=== PATIENT | female | born 1990 | race Caucasian/White ===

== ENCOUNTER 2017-03-16 16:35 | Emergency (ER) | payer OTHER ==
[~2017-03-16] VITALS: Ht 165.1 cm; Wt 63.5 kg
[2017-03-16 17:06] VITALS: BP 113/66
--- NOTE | 2017-03-16 18:49 | NUR ---
26/F BIB FAMILY C/O "DARK GREYISH" VAGINAL DISCHARGE WITH ODOR X 2-3MONTH, PROGRESSIVELY GETTING WORSE; SEEN BY URGENT CARE FOR SAME PROBLEM, WAS SENT HOME WITH ABX, PT STS SHE FINISHED ALL MEDICATION PRESCRIBED. DENIES N/V/D; SKIN IS PINK/WARM/DRY; AAOX4 WITH EVEN AND STEADY GAIT; PATIENT STATES PAIN OF 0/10 AT THIS TIME; PATIENT POSITIONED FOR COMFORT; HOB ELEVATED; BEDRAILS UP X2; BED DOWN. ER MD MADE AWARE OF PT STATUS.
--- NOTE | 2017-03-16 18:53 | NUR ---
Patient being evaluated by HARSHIL FAJARDO at bedside.
--- NOTE | 2017-03-16 19:08 | NUR ---
Pt report given to SHALINI MICHEL. Transfer of care at this time.
--- NOTE | 2017-03-16 19:50 | NUR ---
Female Nickel Plater accompanied DR AARON FOR female patient for Pelvic Exam.
--- NOTE | 2017-03-16 20:00 | NUR ---
Patient appears to be resting comfortably in bed. Respirations even and unlabored.
[2017-03-16 20:21] LABS: APPEARANCE,URINE HAZY (CLEAR); BILIRUBIN,URINE NEGATIVE (NEGATIVE); BLOOD, URINE 2+ (NEGATIVE); COLOR,URINE YELLOW (YELLOW); LEUKOCYTE ESTERASE ,URINE 2+ (NEGATIVE); NITRITE, URINE NEGATIVE (NEGATIVE); PH,URINE 7.5 (5.0-9.0); UGLUCOSE NEGATIVE (NEGATIVE)
[2017-03-16 20:25] LABS: RBC,URINE 3-10 (FEW) /HPF (0-5); WBC,URINE 6-15 (FEW) /HPF (0-5)
[2017-03-16 21:25] VITALS: BP 110/71
--- NOTE | 2017-03-16 21:25 | NUR ---
Patient discharged with v/s stable. Written and verbal after care instructions given and explained. Patient alert, oriented and verbalized understanding of instructions. Ambulatory with steady gait. All questions addressed prior to discharge. ID band removed. Patient advised to follow up with PMD. Rx of TYLENOL AND KEFLEX given. Patient educated on indication of medication including possible reaction and side effects. Opportunity to ask questions provided and answered.
== END 2017-03-16 21:25 | disposition home or self-care (01) ==
LOC: MED 16:35
DX: N39.0 Urinary tract infection, site not specified (principal); N89.8 Other specified noninflammatory disorders of vagina; Z88.0 Allergy status to penicillin
CPT/HCPCS: 81001; 81025; 87086; 87210; 99284